=== PATIENT | male | born 1965 | race Caucasian/White ===

== ENCOUNTER 2016-12-11 08:27 | Emergency (ER) | payer OTHER ==
[~2016-12-11] VITALS: Ht 177.8 cm; Wt 90.0 kg
[~2016-12-11 08:27] MED LIST: CIPR500T4 PO
[2016-12-11 08:33] VITALS: Ht 177.8 cm; Wt 90.0 kg
[2016-12-11] MEDS ORDERED: HYDROCODONE/APAP (10/325) TAB PO ONE (09:30)
--- NOTE | 2016-12-11 09:42 | ERD ---
ER Documentation Chief Complaint Date/Time DATE: 12/11/16 TIME: 09:40 Chief Complaint s/p phuong ordonez has left sided chest wall pain HPI This is a 51-year-old male who presents to the emergency department today with his nephew complaining of tripping over a step while walking into his house last night and now has left-sided rib pain. States he is having pain with deep breaths. He has not taken any medication for the pain. Denies any cough, cigarette smoking. Denies hitting his head or loss of consciousness. ROS All systems reviewed and are negative except as per history of present illness. Medications Home Meds Active Scripts Naproxen* (Naprosyn*) 500 Mg Tablet, 500 MG PO BID Y for PAIN AND/OR INFLAMMATION, #30 TAB Prov:ASHLEE CASEY PA-C 12/11/16 Hydrocodone/Acetaminophen (Bancroft 10-325 Tablet) 1 Each Tablet, 1 TAB PO Q6H Y for PAIN, #20 TAB Prov:ASHLEE CASEY PA-C 12/11/16 Ciprofloxacin Hcl* (Ciprofloxacin Hcl*) 500 Mg Tablet, 500 MG PO BID for 7 Days , TAB Prov:TERA DIOR NP 08/24/15 Allergies Allergies: Coded Allergies: No Known Allergy (Unverified , 12/11/16) PMhx/Soc Medical and Surgical Hx: pt denies Medical Hx, pt denies Surgical Hx Hx Alcohol Use: No Hx Substance Use: No Hx Tobacco Use: No Smoking Status: Never smoker Physical Exam Vitals Vital Signs Date Time Temp Pulse Resp B/P Pulse Ox O2 Delivery O2 Flow Rate FiO2 12/11/16 08:33 98.1 96 20 137/80 96 Physical Exam Const: No acute distress Head: Atraumatic Eyes: Normal Conjunctiva ENT: Normal External Ears, Nose and Mouth. Neck: Full range of motion..~ No meningismus. Resp: Clear to auscultation bilaterally. No absent breath sounds. No wheezing. Tenderness to palpation left side of her anterior chest wall and left side of ribs Cardio: Regular rate and rhythm, no murmurs Abd: Soft, non tender, non distended. Normal bowel sounds. No left upper quadrant tenderness. Skin: No petechiae or rashes Neur: Awake and alert Psych: Normal Mood and Affect Results 24 hrs Current Medications Medications (Trade) Dose Ordered Sig/Luann Route PRN Reason Start Time Stop Time Status Last Admin Dose Admin Acetaminophen/ Hydrocodone Bitart (Bancroft (23255)) 1 tab ONCE ONCE PO 12/11/16 09:30 12/11/16 09:31 DC 12/11/16 09:14 DIAGNOSTIC IMAGING REPORT Patient: TOÑA FUENTES : 1965 Age: 51 Sex: M MR #: [id number] DOS: 12/11/16 0000 Ordering MD: ASHLEE CASEY PA-C Location: [facility] Room/Bed: PROCEDURE: XR Chest. CLINICAL INDICATION: Trauma. Pain. TECHNIQUE: Single frontal chest x-ray. COMPARISON: None available. FINDINGS: The cardiomediastinal silhouette is within normal limits. The lungs are clear without focal consolidation, effusion, or pneumothorax. There are no acute osseous abnormalities. IMPRESSION: 1. No acute cardiopulmonary abnormality. RPTAT: GG .Thomas Lee MD, MD Date Time Electronically viewed and signed by .Thomas Lee MD, MD on 12/11/2016 09:43 .P/ CC: ASHLEE CASEY PA-C DIAGNOSTIC IMAGING REPORT Patient: TOÑA FUENTES : 1965 Age: 51 Sex: M MR #: [id number] DOS: 12/11/16 0000 Ordering MD: ASHLEE CASEY PA-C Location: [facility] Room/Bed: PROCEDURE: XR Left rib series. CLINICAL INDICATION: Status post fall. Left chest wall pain. TECHNIQUE: 3 views of the left rib cage are available for review COMPARISON: None available FINDINGS: No displaced rib fractures identified. No acute fracture or dislocation is identified. The cardiomediastinal silhouette is within normal limits. The visualized left lung is clear. IMPRESSION: 1. Negative for a displaced rib fracture. RPTAT: TT .Thomas Lee MD, MD Date Time Electronically viewed and signed by .Thomas Lee MD, MD on 12/11/2016 09:45 .P/ CC: ASHLEE CASEY PA-C Procedures/MDM This is a 51-year-old male who presents to the emergency department today complaining of difficulty taking deep breaths and left-sided rib pain after mechanical fall last night. Given the trauma I did obtain imaging. Chest x-ray is negative. No evidence of focal consolidation, pleural effusion or pneumothorax. Low suspicion for PE or abscess. Rib series is negative. There is no acute fracture or dislocation. Patient's symptoms at this time is consistent with a contusion secondary to mechanical fall. Explained this to both the patient and the nephew Patient has no left upper quadrant abdominal pain and I have low suspicion for spleen injury and I do not feel the patient requires an ultrasound or imaging at this time. Patient was given Bancroft here in the emergency department pain improved. I'll give him a prescription for Bancroft for home as well as Naprosyn. He was instructed to ice. At this time the patient is stable for discharge and outpatient management. Patient should follow up with their PCP in the next 1-2 days. They may return to the emergency department sooner for any persistent or worsening of symptoms. Patient understood and agreed with the plan. Departure Diagnosis: Primary Impression: Fall Encounter type: initial encounter Qualified Code: W19.XXXA - Fall, initial encounter Additional Impression: Rib pain on left side Condition: Fair ASHLEE CASEY PA-C Dec 11, 2016 09:42
--- NOTE | 2016-12-11 09:43 | RADRPT ---
PROCEDURE: XR Chest. CLINICAL INDICATION: Trauma. Pain. TECHNIQUE: Single frontal chest x-ray. COMPARISON: None available. FINDINGS: The cardiomediastinal silhouette is within normal limits. The lungs are clear without focal consol idation, effusion, or pneumothorax. There are no acute osseous abnormalities. IMPRESSION: 1. No acute cardiopulmonary abnormality. RPTAT: GG .Thomas Lee MD, MD Date Time Electronically viewed and signed by .Thomas Lee MD, on 12/11/2016 09:43 .P/
--- NOTE | 2016-12-11 09:45 | RADRPT ---
PROCEDURE: XR Left rib series. CLINICAL INDICATION: Status post fall. Left chest wall pain. TECHNIQUE: 3 views of the left rib cage are available for review COMPARISON: None available FINDINGS: No displaced rib fractures identified. No acute fracture or dislocation is identified. The cardiomed iastinal silhouette is within normal limits. The visualized left lung is clear. IMPRESSION: 1. Negative for a displaced rib fracture. RPTAT: TT .Thomas Lee MD, MD Date Time Electronically viewed and signed by .Thomas Lee MD, on 12/11/2016 09:45 .P/
[2016-12-11] MEDS ORDERED: NAPR-260 PO (10:04)
[2016-12-11] MEDS ORDERED: HYDR-902 PO (10:04)
[2016-12-11 10:20] VITALS: BP 132/78; PULSE 72; RESP 18; TEMP 98.1
== END 2016-12-11 10:21 | disposition home or self-care (01) ==
LOC: FTE 08:27
DX: S29.9XXA Unspecified injury of thorax, initial encounter (principal); W10.9XXA Fall (on) (from) unspecified stairs and steps, initial encounter; Y92.9 Unspecified place or not applicable
CPT/HCPCS: 71010; 71100; Z7502; Z7610